=== PATIENT | male | born 1995 | race African-American/Black ===

== ENCOUNTER 2017-07-19 13:28 | Emergency (ER) | payer OTHER ==
[~2017-07-19] VITALS: Ht 193 cm; Wt 120.0 kg
[~2017-07-19 13:28] MED LIST: CEPH-460 PO; METH18 PO
[2017-07-19 13:31] VITALS: BP 173/83; PULSE 71; RESP 16; TEMP 98.3; O2SAT 100
--- NOTE | 2017-07-19 14:21 | PD ---
HPI Chief Complaint: Injury Time Seen by Provider: 14:14 Travel History International Travel<30 days: No Contact w/Intl Traveler<30days: No Traveled to known affect area: No History of Present Illness HPI 29-year-old male presents to emergency department with right ankle pain after sliding down a run from the ladder. Patient states that the ankle was painful but he was able to walk on it immediately after the incident. Patient does have full range of motion but particular pain with inversion of his ankle. States that most this pain is on the anterior superior portion of the ankle. Denies numbness or tingling of the foot and ankle. Patient has not taken any medication for his pain this time. PFSH Past Medical History ADD: Yes ADHD: Yes (RX FOR CONCERTA 54 MG---NONCOMPLIANT) Asthma: Yes Bipolar Disorder: Yes Cancer: No Cardiovascular Problems: No Developmental Delay: No Diabetes: No Diminished Hearing: No Headaches: Yes Psychiatric: Yes Respiratory: Yes (ASTHMA) Immunizations Current: Yes Migraines: No Seizures: No Thyroid Disease: No Ulcer: No Past Surgical History Abdominal Surgery: Yes (UMBILICAL HERNIA REPAIRED) Other Surgery: No Social History Alcohol Use: No Tobacco Use: Yes (BLACK AND MILDS OCC) Substance Use: Yes (MARIJUANA OCC) Allergies-Medications (Allergen,Severity, Reaction): Coded Allergies: divalproex sodium (Unverified Allergy, Severe, SWELLING OF TONGUE, ) quetiapine (Unverified Allergy, Severe, TONGUE EDEMA, 07/19/17) risperidone (Unverified Allergy, Severe, 07/19/17) Reported Meds & Prescriptions Reported Meds & Active Scripts Active Ibuprofen 800 Mg Tab 800 Mg PO Q8H PRN 5 Days Keflex (Cephalexin) 500 Mg Cap 500 Mg PO Q6H Reported Concerta (Methylphenidate HCl) 18 Mg Erinn 0 PO DAILY Review of Systems Except as stated in HPI: all other systems reviewed are Neg Physical Exam Narrative GENERAL: Well-developed well-nourished in mild distress, obese SKIN: Warm and dry. HEAD: Normocephalic. EYES: No scleral icterus. No injection or drainage. NECK: Supple, trachea midline. No JVD or lymphadenopathy. Right ankle- mild edema over the lateral malleolus, no ecchymosis or crepitus, no deformities. Negative anterior posterior drawer, full range of motion with tenderness to inversion MUSCULOSKELETAL: No cyanosis, or edema. BACK: Nontender without obvious deformity. No CVA tenderness. PSYCHIATRIC: No delusional thought processes. Data Data Last Documented VS Vital Signs Date Time Temp Pulse Resp B/P (MAP) Pulse Ox O2 Delivery O2 Flow Rate FiO2 07/19/17 13:31 98.3 71 16 173/83 (113) 100 Orders Orders Ankle, Complete ([id number]) (07/19/17 ) Ibuprofen (Motrin) (07/19/17 14:30) Support Splint (07/19/17 14:21) Crutches (07/19/17 14:21) MDM Medical Decision Making Medical Screen Exam Complete: Yes Emergency Medical Condition: Yes Differential Diagnosis Right ankle sprain versus fracture versus contusion Narrative Course 29-year-old male presents to emergency department with right ankle pain after sliding down a run from the ladder. Patient states that the ankle was painful but he was able to walk on it immediately after the incident. Patient does have full range of motion but particular pain with inversion of his ankle. States that most this pain is on the anterior superior portion of the ankle. Denies numbness or tingling of the foot and ankle. Patient has not taken any medication for his pain this time. Vital signs stable Physical exam consistent with anterior ligamental involvement. No crepitus, neurovascularly intact Patient to use crutches and stirrup for stabilization and symptomatically relief. Ibuprofen for pain at home. X-ray negative for fracture. Patient to follow up with primary care physician within 2-3 days. Return to the emergency department for worsening or persistent symptoms Diagnosis Primary Impression: Ankle sprain Qualified Codes: S93.401A - Sprain of unspecified ligament of right ankle, initial encounter Referrals: [facility] Additional Instructions: Take Motrin as prescribed with food Ensure of nutritious diet with plenty of fluid intake. Recommend minimal weightbearing for 3 days. Then as tolerated. Elevate leg when sitting. Keep leg wrapped and iced as needed. Scripts Ibuprofen (Ibuprofen) 800 Mg Tab 800 MG PO Q8H Y for pain for 5 Days, #15 TAB 0 Refills Prov: Eric Grossman MD 07/19/17 Disposition: 01 DISCHARGE HOME Condition: Stable Fartun Rowe Jul 19, 2017 14:21
--- NOTE | 2017-07-19 14:29 | RADRPT ---
EXAM DATE/TIME: 07/19/2017 14:07 [facility] COMPARISON: No previous studies available for comparison. INDICATIONS : Twisted ankle when he fell off a ladder today. Pain on the top of his ankle. MEDICAL HISTORY : None. SURGICAL HISTORY : None. ENCOUNTER: Initial ACUITY: 1 day PAIN SCORE: 7/10 LOCATION: Right Ankle FINDINGS: Moderate soft tissue swelling both on the lateral side and on the dorsum. Fracture is not appreciate d. CONCLUSION: Soft tissue swelling, negative for fracture Christopher Dotson MD FACR on July 19, 2017 at 14:26 Board Certified Radiologist. This report was verified electronically.
[2017-07-19] MEDS ORDERED: IBUPROFEN 800 MG TAB PO ONE (14:30)
[2017-07-19] MEDS ORDERED: IBUP1TAB7 PO (14:44)
== END 2017-07-19 15:13 | disposition home or self-care (01) ==
LOC: NEPK 13:28
DX: S93.401A Sprain of unspecified ligament of right ankle, initial encounter (principal); F17.200 Nicotine dependence, unspecified, uncomplicated; F90.9 Attention-deficit hyperactivity disorder, unspecified type; J45.909 Unspecified asthma, uncomplicated; F31.9 Bipolar disorder, unspecified; W11.XXXA Fall on and from ladder, initial encounter; Z79.899 Other long term (current) drug therapy
CPT/HCPCS: 73610; 99283; E0113; L1906